=== PATIENT | female | born 1990 | race Two or more races ===

== ENCOUNTER 2020-12-26 21:59 | Emergency (ER) | payer MEDICAID ==
[~2020-12-26] VITALS: Ht 160 cm; Wt 52.0 kg
[~2020-12-26 21:59] MED LIST: IBUP-2029 MT; OMEP40CA12 MT
[2020-12-26] MEDS ORDERED: VISCOUS LIDOCAINE 2% 15 ML UDC PO STA (23:51)
[2020-12-26] MEDS ORDERED: FAMOTIDINE 20MG/2ML VIAL IV STA (23:51)
[2020-12-26] MEDS ORDERED: KETOROLAC 30MG/ML VIAL IV STA (23:51)
[2020-12-26] MEDS ORDERED: MAGNESIUM/ALUMINUM HYDROXIDE/SIMETHICONE 30ML UDC PO STA (23:51)
[2020-12-27] MEDS ORDERED: SODIUM CHLORIDE 0.9% 1,000 ML IV ONE
[2020-12-27 00:25] LABS: BASOPHILS % 0.5 % (0.0-2.0); EOSINOPHILS % 0.9 % (0.0-5.0); HEMATOCRIT. 34.8 % (36.0-48.0); HEMOGLOBIN. 11.3 g/dL (12.0-16.0); LYMPHOCYTES % 48.6 % (20.0-50.0); MEAN CORPUSCULAR HEMOGLOBIN 22.5 pg (28.0-32.0); MEAN CORPUSCULAR VOLUME 69.6 fL (81.0-99.0); MEAN PLATELET VOLUME 8.8 fl (7.4-10.4); MONOCYTES % 9.7 % (2.0-8.0); NEUTROPHILS % 40.3 % (40.0-76.0); PLATELET 276 x1000/uL (130-400); RED BLOOD CELL COUNT 5.01 mill/uL (4.2-5.4); RED CELL DISTRIBUTION WIDTH 15.4 % (11.6-14.6)
[2020-12-27 00:37] LABS: CHLORIDE 107 mEq/L (98-107)
[2020-12-27 00:43] LABS: HCG SCREEN NEGATIVE
[2020-12-27] MEDS ORDERED: ONDA4TAB5 MT (01:12)
[2020-12-27] MEDS ORDERED: MAG-55 MT (01:12)
[2020-12-27 02:10] VITALS: BP 99/61
== END 2020-12-27 02:21 | disposition home or self-care (01) ==
LOC: ER 21:59
DX: R10.9 Unspecified abdominal pain (principal); D64.9 Anemia, unspecified; Z98.890 Other specified postprocedural states; Z79.899 Other long term (current) drug therapy
CPT/HCPCS: 36415; 80053; 83605; 83690; 84703; 85025; 96361; 96374; 96375; 99284; J1885; J3490; J7030

== ENCOUNTER 2021-02-01 05:31 | Emergency (ER) | payer MEDICAID ==
[~2021-02-01 05:31] MED LIST changes: +MAG-55 MT; +ONDA4TAB5 MT
== END 2021-02-01 07:07 | disposition left against medical advice (07) ==
LOC: ER 05:31
DX: Z53.21 Procedure and treatment not carried out due to patient leaving prior to being seen by health care provider (principal)